=== PATIENT | female | born 1980 | race Caucasian/White ===

== ENCOUNTER 2020-03-31 17:54 | Emergency (ER) | payer MEDICAID, OTHER ==
[2020-03-31] MEDS ORDERED: SODIUM CHLORIDE 0.9% 1,000 ML IV STA (18:17)
[2020-03-31] MEDS ORDERED: METOCLOPRAMIDE 10 MG/2 ML VIAL IVP STA (18:17)
[2020-03-31 18:42] LABS: ALBUMIN 4.3 g/dL (3.2-5.5); ALBUMIN/GLOBULIN RATIO 1.1 (1.0-2.2); BILIRUBIN,TOTAL 1.2 mg/dL (0.2-1.0); CREATININE 0.5 mg/dL (0.4-1.0); TOTAL PROTEIN 8.3 g/dL (6.7-8.2)
[2020-03-31] MEDS ORDERED: diphenhydrAMINE INJ 50 MG/ML VIAL IVP STA (19:01)
[2020-03-31] MEDS ORDERED: MORPHINE 10 MG/ML VIAL IVP STA (19:01)
--- NOTE | 2020-03-31 19:02 | ED Physician Documentation ---
PD HPI HEADACHE - Stated complaint Stated Complaint: NAUSEA/VOM - Chief complaint Chief Complaint: Neuro - History obtained from History obtained from: Patient - Additional information Additional information: at 9 weeks gestation presents with headache light sensitivity and vomiting since yesterday associated with some diarrhea as well. No fevers or neck stiffness. Feels consistent with prior headaches/migraines. Did not try anything at home. Review of Systems Constitutional: denies: Fever, Chills Nose: denies: Rhinorrhea / runny nose Cardiac: denies: Palpitations Respiratory: denies: Dyspnea, Cough PD PAST MEDICAL HISTORY - Past Medical History Past Medical History: Yes Cardiovascular: High cholesterol Respiratory: None Endocrine/Autoimmune: Type 2 diabetes GI: None : None HEENT: None Psych: None Musculoskeletal: None Derm: None - Past Surgical History Past Surgical History: No - Present Medications Home Medications: Ambulatory Orders Medication Instructions Recorded Confirmed Aspirin/Acetaminophen/Caffeine 1 cap PO PRN 09/22/12 09/22/12 [Excedrin Extra Strength Caplet] Metformin HCl 500 mg PO BID 09/22/12 09/22/12 Multivitamin [Multivitamins] 1 each PO DAILY 09/22/12 09/22/12 cephALEXin [Keflex] 500 mg PO Q6H #28 capsule 09/30/12 Butalb/Acetaminophen/Caffeine 1 each PO Q4H PRN #10 capsule 03/31/20 [Fioricet 50-300-40 mg Capsule] Metoclopramide [Reglan] 10 mg PO Q6H PRN #20 tablet 03/31/20 - Allergies Allergies/Adverse Reactions: Allergies Allergy/AdvReac Type Severity Reaction Status Date / Time No Known Drug Allergies Allergy Verified 03/31/20 18:02 - Social History Does the pt smoke?: No Smoking Status: Never smoker Does the pt drink ETOH?: No Does the pt have substance abuse?: Yes - Immunizations Immunizations are current?: Yes - POLST Patient has POLST: No PD ED PE NORMAL - Vitals Vital signs reviewed: Yes - General General: Alert and oriented X 3, No acute distress - HEENT HEENT: PERRL, EOMI - Neck Neck: Supple, no meningeal sign, No bony TTP - Cardiac Cardiac: RRR, No murmur - Respiratory Respiratory: No respiratory distress - Female Female : Other (Bedside ultrasound demonstrates single live intrauterine with a heartbeat rate of 164) - Neuro Neuro: Alert and oriented X 3, Normal speech Results - Vitals Vitals: Vital Signs - 24 hr 03/31/20 03/31/20 03/31/20 17:59 18:57 20:12 Temperature 36.4 C L Heart Rate 90 78 77 Respiratory 16 17 18 Rate Blood Pressure 164/87 H 145/83 H 112/69 O2 Saturation 97 99 98 Oxygen O2 Source Room air - Labs Labs: Laboratory Tests 03/31/20 03/31/20 18:06 18:15 Sodium 132 L Potassium 3.6 Chloride 99 L Carbon Dioxide 19 L Anion Gap 14.0 H BUN 11 Creatinine 0.5 Estimated GFR (MDRD) 137 Glucose 213 H POC Whole Bld Glucose 199 H Calcium 9.0 Total Bilirubin 1.2 H AST 23 ALT 42 Alkaline Phosphatase 78 Total Protein 8.3 H Albumin 4.3 Globulin 4.0 Albumin/Globulin Ratio 1.1 Lipase 24 PD MEDICAL DECISION MAKING - ED course ED course: 39-year-old woman with what seems like an uncomplicated migraine, has not taken anything at home because of concerns. Here she is administered Reglan and Benadryl IV with significant improvement in pain and requesting discharge. No clinical evidence of meningitis, history is inconsistent with subarachnoid hemorrhage. Departure - Departure Disposition: 01 Home, Self Care Clinical Impression: Migraine Qualifiers: Migraine type: with aura Status migrainosus presence: with status migrainosus Intractability: not intractable Qualified Code(s): G43.101 - Migraine with aura, not intractable, with status migrainosus Condition: Good Record reviewed to determine appropriate education?: Yes Instructions: ED Headache Migraine Prescriptions: Butalb/Acetaminophen/Caffeine [Fioricet 50-300-40 mg Capsule] 1 each PO Q4H PRN #10 capsule PRN Reason: Headache Metoclopramide [Reglan] 10 mg PO Q6H PRN #20 tablet PRN Reason: nausea or headache Comments: I have prescribed some medications that are of course safe in that you can try at home. You can also take Tylenol. Return for new or worsening symptoms or if the pain is uncontrolled. Follow-up with your chief dietitian as scheduled. Discharge Date/Time: 03/31/20 20:34
[2020-03-31 20:13] VITALS: BP 112/69
== END 2020-03-31 20:34 | disposition home or self-care (01) ==
LOC: ED 17:54
DX: O99.351 Diseases of the nervous system complicating pregnancy, first trimester (principal); G43.101 Migraine with aura, not intractable, with status migrainosus; O24.111 Pre-existing type 2 diabetes mellitus, in pregnancy, first trimester; E11.9 Type 2 diabetes mellitus without complications; Z79.84 Long term (current) use of oral hypoglycemic drugs; O09.521 Supervision of elderly multigravida, first trimester; Z3A.09 9 weeks gestation of pregnancy
CPT/HCPCS: 36415; 80053; 83690; 96361; 96374; 96375; 99283; 99284; J1200; J2765

== ENCOUNTER 2020-05-06 04:26 | Emergency (ER) | payer MEDICAID ==
[2020-05-06] MEDS ORDERED: BUTALB/ACETAM/CAFF 50/325/40MG TABLET PO STA (05:15)
--- NOTE | 2020-05-06 05:46 | ED Physician Documentation ---
History of Present Illness - Stated complaint Stated Complaint: JIMENZE - Chief complaint Chief Complaint: Heent - History obtained from History obtained from: Patient - Additonal information Additional information: 40-year-old woman with past medical history of diabetes, at 14 weeks gestation presents with bilateral occipital headache gradual onset 3 days ago, intermittent, waxing and waning, currently 7 out of 10, worse with coughing. Patient states that she has a chronic nonproductive cough in the morning. Denies dizziness, chest pain, shortness of breath, vomiting. she does have morning sic kness occasionally that has not worsened recently. Review of Systems Ten Systems: 10 systems reviewed and negative Neurologic: reports: Headache PD PAST MEDICAL HISTORY - Past Medical History Past Medical History: Yes Cardiovascular: High cholesterol Respiratory: None Neuro: Migraines Endocrine/Autoimmune: Type 2 diabetes GI: None : None HEENT: None Psych: None Musculoskeletal: None Derm: None - Past Surgical History Past Surgical History: No - Present Medications Home Medications: Ambulatory Orders Medication Instructions Recorded Confirmed Metformin HCl 500 mg PO BID 09/22/12 05/06/20 Multivitamin [Multivitamins] 1 each PO DAILY 09/22/12 05/06/20 Butalb/Acetaminophen/Caffeine 1 each PO Q4H PRN #10 capsule 03/31/20 05/06/20 [Fioricet 50-300-40 mg Capsule] Metoclopramide [Reglan] 10 mg PO Q6H PRN #20 tablet 03/31/20 05/06/20 Aspirin [Aspirin EC] 2 cap.ec PO DAILY 05/06/20 05/06/20 Butalb/Acetaminophen/Caffeine 1 each PO 1-2XD PRN #15 tablet 05/06/20 [Esgic 50-325-40 mg Tablet] - Allergies Allergies/Adverse Reactions: Allergies Allergy/AdvReac Type Severity Reaction Status Date / Time No Known Drug Allergies Allergy Verified 05/06/20 04:40 - Social History Does the pt smoke?: No Smoking Status: Never smoker Does the pt drink ETOH?: No Does the pt have substance abuse?: Yes - Immunizations Immunizations are current?: Yes - POLST Patient has POLST: No PD ED PE NORMAL - Vitals Vital signs reviewed: Yes - General General: Alert and oriented X 3 - HEENT HEENT: Atraumatic, PERRL, EOMI, Moist mucous membranes - Neck Neck: Supple, no meningeal sign - Cardiac Cardiac: RRR - Respiratory Respiratory: Clear bilaterally - Abdomen Abdomen: Non tender, Non distended, Other (gravid uterus. us with normal movement. HR 146) - Female Female : Deferred - Rectal Rectal: Deferred - Back Back: No CVA TTP - Derm Derm: Normal color - Extremities Extremities: No deformity - Neuro Neuro: Alert and oriented X 3 - Psych Psych: Normal mood, Normal affect Results - Vitals Vitals: Vital Signs - 24 hr 05/06/20 05/06/20 04:37 04:40 Temperature 36.6 C 36.6 C Heart Rate 88 88 Respiratory 16 16 Rate Blood Pressure 136/81 H 136/81 H O2 Saturation 97 97 Oxygen O2 Source Room air PD MEDICAL DECISION MAKING - ED course ED course: 40-year-old woman, 14 weeks complicated by diabetes and advanced maternal age, no other complicating factors. She has been suffering from headache during this that is worse with coughing. She was prescribed butalbital acetaminophen caffeine on a prior ED visit with improvement in her headache and is requesting a refill. Her blood pressure is borderline elevated but not in the range for preeclampsia (>140/90) according to ACOG. Patient was advised to have it rechecked at her OB appointment this Friday. Strict return precautions given. Departure - Departure Disposition: Home, Self Care Clinical Impression: Headache, Condition: Good Instructions: ED Headache Migraine Prescriptions: Butalb/Acetaminophen/Caffeine [Esgic 50-325-40 mg Tablet] 1 each PO 1-2XD PRN #15 tablet PRN Reason: Headache Comments: You were seen in the emergency department for a headache. Your baby's heartbeat was 146bpm, a healthy range. Your blood pressure was borderline elevated (136/81), so you should get that checked by your [employer] TE[employer]ER at your visit on friday and let them know you've been having headaches. Return for any new or worsening symptoms or other concerns.
[2020-05-06 05:50] VITALS: BP 135/82
== END 2020-05-06 05:49 | disposition home or self-care (01) ==
LOC: ED 04:26
DX: O99.891 Other specified diseases and conditions complicating pregnancy (principal); R51.9 Headache, unspecified; R03.0 Elevated blood-pressure reading, without diagnosis of hypertension; O24.112 Pre-existing type 2 diabetes mellitus, in pregnancy, second trimester; E11.9 Type 2 diabetes mellitus without complications; Z79.84 Long term (current) use of oral hypoglycemic drugs; O09.522 Supervision of elderly multigravida, second trimester; Z3A.14 14 weeks gestation of pregnancy
CPT/HCPCS: 99282; 99284; A9270

== ENCOUNTER 2020-05-19 22:50 | Emergency (ER) | payer MEDICAID ==
[2020-05-19] MEDS ORDERED: METOCLOPRAMIDE 10 MG/2 ML VIAL IVP STA (23:19)
[2020-05-19] MEDS ORDERED: SODIUM CHLORIDE 0.9% 500 ML IV STA (23:19)
--- NOTE | 2020-05-19 23:23 | ED Physician Documentation ---
PD HPI NVD - Stated complaint Stated Complaint: N/V/JIMENEZ - Chief complaint Chief Complaint: Abd Pain - History obtained from History obtained from: Patient - History of Present Illness Timing - onset: Enter time (1800), Today Timing - duration: Hours Timing - details: Abrupt onset, Still present Associated symptoms: No: Fever, Abdominal pain, Chest pain, Dysuria Contributing factors: Diabetes, Other (16 wks ) Worsened by: Eating Similar symptoms before: Diagnosis (migraine) Recently seen: Emergency Dept - Additonal information Additional information: 40-year-old diabetic female is 16 weeks and she has a history of migraine headache she has developed a headache today and this evening about 1800 she began to have vomiting and she has not been able to keep her migraine medications down. She continues to have a headache, nausea and vomiting. She has poorly controlled diabetes and refuses insulin. She is followed by Dr. Gallagher in [place] and by the karmen-natologists at [facility]. Review of Systems Constitutional: denies: Fever Eyes: denies: Decreased vision Ears: denies: Ear pain Nose: denies: Congestion Throat: denies: Sore throat Cardiac: denies: Chest pain / pressure, Palpitations Respiratory: denies: Dyspnea, Cough GI: reports: Nausea, Vomiting. denies: Abdominal Pain : denies: Dysuria, Frequency Musculoskeletal: denies: Neck pain, Back pain, Extremity pain Neurologic: reports: Headache. denies: Generalized weakness, Focal weakness, Numbness, Head injury, LOC PD PAST MEDICAL HISTORY - Past Medical History Cardiovascular: High cholesterol Respiratory: None Neuro: Migraines Endocrine/Autoimmune: Type 2 diabetes GI: None : None HEENT: None Psych: None Musculoskeletal: None Derm: None - Past Surgical History Past Surgical History: No - Present Medications Home Medications: Ambulatory Orders Medication Instructions Recorded Confirmed Metformin HCl 500 mg PO BID 09/22/12 05/19/20 Multivitamin [Multivitamins] 1 each PO DAILY 09/22/12 05/19/20 Butalb/Acetaminophen/Caffeine 1 each PO Q4H PRN #10 capsule 03/31/20 05/19/20 [Fioricet 50-300-40 mg Capsule] Metoclopramide [Reglan] 10 mg PO Q6H PRN #20 tablet 03/31/20 05/19/20 - Allergies Allergies/Adverse Reactions: Allergies Allergy/AdvReac Type Severity Reaction Status Date / Time No Known Drug Allergies Allergy Verified 05/19/20 23:04 - Social History Does the pt smoke?: No Smoking Status: Never smoker Does the pt drink ETOH?: No Does the pt have substance abuse?: Yes - Immunizations Immunizations are current?: Yes - POLST Patient has POLST: No PD ED PE NORMAL - Vitals Vital signs reviewed: Yes (tachy and hypertensive ) - General General: Alert and oriented X 3, Well developed/nourished, Other (40 y/o female with a mask on and an ice bag behind her head. ) - HEENT HEENT: Atraumatic, PERRL, EOMI - Neck Neck: Supple, no meningeal sign, No bony TTP - Cardiac Cardiac: RRR, No murmur - Respiratory Respiratory: No respiratory distress, Clear bilaterally - Abdomen Abdomen: Normal bowel sounds, Soft, Non tender, Non distended, No organomegaly - Back Back: No CVA TTP, No spinal TTP - Derm Derm: Normal color, Warm and dry, No rash - Extremities Extremities: No deformity, No edema - Neuro Neuro: Alert and oriented X 3, supervisor fleshing 2-12 intact, No motor deficit, No sensory deficit, Normal speech Eye Opening: Spontaneous Motor: Obeys Commands Verbal: Oriented GCS Score: 15 - Psych Psych: Normal mood, Normal affect Results - Vitals Vitals: Vital Signs - 24 hr 05/19/20 05/20/20 05/20/20 22:59 00:02 01:40 Temperature 36.7 C Heart Rate 115 H 95 Respiratory 24 18 16 Rate Blood Pressure 157/96 H 136/92 H O2 Saturation 97 96 05/20/20 05/20/20 02:22 03:07 Temperature Heart Rate Respiratory 16 15 Rate Blood Pressure O2 Saturation Oxygen O2 Source Room air - Labs Labs: Laboratory Tests 05/19/20 05/19/20 05/20/20 23:10 23:10 01:51 WBC 13.6 H RBC 4.44 Hgb 13.4 Hct 38.8 MCV 87.4 MCH 30.2 MCHC 34.5 RDW 13.0 Plt Count 382 MPV 10.0 Neut # (Auto) 10.8 H Lymph # (Auto) 2.0 [place] # (Auto) 0.5 Eos # (Auto) 0.1 Baso # (Auto) 0.0 Absolute Nucleated RBC 0.00 Nucleated RBC % 0.0 Sodium 133 L Potassium 3.7 Chloride 102 Carbon Dioxide 19 L Anion Gap 12.0 BUN 11 Creatinine 0.4 Estimated GFR (MDRD) 177 Glucose 208 H Calcium 9.3 Total Bilirubin 0.5 AST 17 ALT 28 Alkaline Phosphatase 58 Total Protein 7.8 Albumin 4.0 Globulin 3.8 Albumin/Globulin Ratio 1.1 Lipase 31 Urine Color YELLOW Urine Clarity CLEAR Urine pH 6.0 Ur Specific [place] 1.020 Urine Protein NEGATIVE Urine Glucose (UA) >=1000 H Urine Ketones >=80 H Urine Occult Blood NEGATIVE Urine Nitrite NEGATIVE Urine Bilirubin NEGATIVE Urine Urobilinogen 0.2 (NORMAL) Ur Leukocyte Esterase NEGATIVE Ur Microscopic Review NOT INDICATED Urine Culture Comments NOT INDICATED Procedures - Bedside sono Bedside sono by EMP: With use of bedside ultrasound the fetus is imaged and has a heart rate of 144 bpm a biparietal diameter suggesting a gestational age of 15 weeks 3 days. - IVC sono (time) 2320 Bedside IVC sono: IVC measures (cm) (1.7), Euvolemia PD MEDICAL DECISION MAKING - ED course Complexity details: reviewed old records, reviewed results, re-evaluated patient, considered differential, d/w patient ED course: 40-year-old diabetic female 16 weeks has migraine headache and vomiting unable to keep her Reglan down and an IV is begun she is given 10 mg of Reglan intravenously as well as 500 mils of fluid. She has improvement and feels like she could go home and then all symptoms return. She is given IV zofran with improvement in her vomiting but her headache returns at 10/10 and she is given the migraine cocktail of compazine, benadryl, decadron and toradal. Departure - Departure Disposition: 01 Home, Self Care Clinical Impression: Migraine Qualifiers: Migraine type: with aura Status migrainosus presence: without status migrainosus Intractability: not intractable Qualified Code(s): G43.109 - Migraine with aura, not intractable, without status migrainosus Condition: Stable Instructions: ED Headache Migraine Follow-Up: LUIS GUTIÉRREZ ARNP [Primary Care Provider] -
[2020-05-19 23:44] LABS: BASOPHILS % (AUTO) 0.3 %; EOSINOPHILS # (AUTO) 0.1 10^3/uL (0.0-0.7); EOSINOPHILS % (AUTO) 0.6 %; HGB - HEMOGLOBIN 13.4 g/dL (12.0-16.0); LYMPHOCYTES % (AUTO) 14.6 %; MEAN CORPUSCULAR HEMOGLOBIN 30.2 pg (27.0-31.0); MEAN CORPUSCULAR HGB CONC 34.5 g/dL (32.0-36.0); MEAN CORPUSCULAR VOLUME 87.4 fL (81.0-99.0); MONOCYTES # (AUTO) 0.5 10^3/uL (0.0-1.0); MONOCYTES % (AUTO) 3.8 %; NEUTROPHILS # (AUTO) 10.8 10^3/uL (1.5-6.6); NEUTROPHILS % (AUTO) 79.8 %; PLT - PLATELET COUNT 382 10^3/uL (130-450); RED BLOOD COUNT 4.44 10^6/uL (4.20-5.40); WHITE BLOOD COUNT 13.6 x10^3/uL (4.8-10.8)
[2020-05-19 23:53] LABS: ALBUMIN/GLOBULIN RATIO 1.1 (1.0-2.2); BILIRUBIN,TOTAL 0.5 mg/dL (0.2-1.0); CALCIUM 9.3 mg/dL (8.5-10.3); CREATININE 0.4 mg/dL (0.4-1.0); TOTAL PROTEIN 7.8 g/dL (6.7-8.2)
[2020-05-20] MEDS ORDERED: SODIUM CHLORIDE 0.9% 500 ML IV STA (00:53)
[2020-05-20 01:55] LABS: BILIRUBIN,URINE NEGATIVE (NEGATIVE); GLUCOSE, URINE (UA) >=1000 mg/dL (NEGATIVE); KETONES,URINE (UA) >=80 mg/dL (NEGATIVE); LEUKOCYTE ESTERASE, URINE NEGATIVE (NEGATIVE); NITRITE,URINE NEGATIVE (NEGATIVE); OCCULT BLOOD,URINE NEGATIVE (NEGATIVE); PROTEIN,URINE NEGATIVE (NEGATIVE); UROBILINOGEN,URINE 0.2 (NORMAL) E.U./dL (NORMAL)
[2020-05-20 01:56] LABS: CLARITY,URINE CLEAR (CLEAR)
[2020-05-20] MEDS ORDERED: ONDANSETRON 4 MG/2 ML VIAL IVP STA (02:15)
[2020-05-20] MEDS ORDERED: PROCHLORPERAZINE 10 MG/2 ML VIAL IVP STA (04:17)
[2020-05-20] MEDS ORDERED: DEXAMETHASONE 10 MG/ML VIAL IVP STA (04:18)
[2020-05-20] MEDS ORDERED: KETOROLAC 30 MG/ML VIAL IVP STA (04:18)
[2020-05-20] MEDS ORDERED: diphenhydrAMINE INJ 50 MG/ML VIAL IVP STA (04:18)
[2020-05-20 06:31] VITALS: BP 118/67
== END 2020-05-20 06:52 | disposition home or self-care (01) ==
LOC: ED 22:50
DX: O99.352 Diseases of the nervous system complicating pregnancy, second trimester (principal); G43.109 Migraine with aura, not intractable, without status migrainosus; O24.112 Pre-existing type 2 diabetes mellitus, in pregnancy, second trimester; E11.9 Type 2 diabetes mellitus without complications; Z79.84 Long term (current) use of oral hypoglycemic drugs; Z3A.15 15 weeks gestation of pregnancy
CPT/HCPCS: 80053; 81003; 83690; 85025; 96361; 96374; 96375; 99284; 99285; J1200; J2765; 81001; 87086

== ENCOUNTER 2022-08-23 08:24 | Emergency (ER) | payer MEDICAID ==
--- NOTE | 2022-08-23 08:39 | ED Physician Documentation ---
History of Present Illness - Stated complaint Stated Complaint: DEHYDRATION,NAUSEA - Chief complaint Chief Complaint: Abd Pain - Additonal information Additional information: Patient is 42-year-old female presenting to the emergency department with chief complaints of headache, nausea, vomiting, diarrhea. Symptoms ongoing x2 days. Started initially with left-sided throbbing headache. Reports feels similar to migraine she has had in the past. No trauma, fever, neck stiffness associated with this. Multiple episodes of nonbloody nonbilious vomiting with nonbloody nonmucoid diarrhea at home. Reports nausea vomiting is a frequent symptom associated with her migraines. Denies any known sick contacts, abdominal pain, blood in stool or vomitus. Reports that she is currently menstruating and that she has "Been barely bleeding" which she indicates is an indication of dehydration. In the past she was seen here twice 05/19/2020 and 03/31/2026 for headache associated with nausea vomiting at that time she was in the first and second trimesters of a confirmed intrauterine . She does not believe she is at this time. Review of Systems Constitutional: denies: Fever Eyes: denies: Loss of vision Ears: denies: Loss of hearing Nose: denies: Rhinorrhea / runny nose Throat: denies: Dental pain / toothache Cardiac: denies: Chest pain / pressure GI: reports: Nausea, Vomiting, Diarrhea. denies: Abdominal Pain : denies: Dysuria Skin: denies: Rash Musculoskeletal: denies: Neck pain Neurologic: reports: Headache PD PAST MEDICAL HISTORY - Past Medical History Cardiovascular: High cholesterol Respiratory: None Neuro: Migraines Endocrine/Autoimmune: Type 2 diabetes GI: None : None HEENT: None Psych: None Musculoskeletal: None Derm: None - Past Surgical History Past Surgical History: No - Present Medications Home Medications: Ambulatory Orders Medication Instructions Recorded Confirmed Metformin HCl 1,000 mg PO BID 09/22/12 08/23/22 Multivitamin [Multivitamins] 1 each PO DAILY 09/22/12 08/23/22 Butalb/Acetaminophen/Caffeine 1 each PO Q4H PRN #10 capsule 03/31/20 08/23/22 [Fioricet 50-300-40 mg Capsule] Butalb/Acetaminophen/Caffeine 1 cap PO Q6H PRN #10 cap 08/23/22 [Fioricet 50-300-40 mg Capsule] - Allergies Allergies/Adverse Reactions: Allergies Allergy/AdvReac Type Severity Reaction Status Date / Time No Known Drug Allergies Allergy Verified 08/23/22 08:34 - Social History Does the pt smoke?: No Smoking Status: Never smoker Does the pt drink ETOH?: No Does the pt have substance abuse?: Yes - Immunizations Immunizations are current?: Yes - POLST Patient has POLST: No PD ED PE NORMAL - Vitals Vital signs reviewed: Yes (Mild elevated blood pressure but otherwise within normal limits.) - General General: Alert and oriented X 3, No acute distress, Well developed/nourished - HEENT HEENT: Atraumatic, PERRL, Moist mucous membranes - Neck Neck: Supple, no meningeal sign - Cardiac Cardiac: RRR - Respiratory Respiratory: No respiratory distress - Abdomen Abdomen: Normal bowel sounds, Soft, Non tender - Female Female : Deferred - Rectal Rectal: Deferred - Derm Derm: Normal color - Neuro Neuro: Alert and oriented X 3, mass spectroscopist 2-12 intact, No motor deficit, Normal speech Results - Vitals Vitals: Vital Signs - 24 hr 08/23/22 08:31 Temperature 36.6 C Heart Rate 86 Respiratory 16 Rate Blood Pressure 150/90 H O2 Saturation 98 Oxygen O2 Source Room air - Labs Labs: Laboratory Tests 08/23/22 08/23/22 08/23/22 08:45 08:45 08:45 WBC 12.8 H RBC 5.09 Hgb 13.8 Hct 41.7 MCV 81.9 MCH 27.1 MCHC 33.1 RDW 14.0 Plt Count 432 MPV 10.2 Neut # (Auto) 9.3 H Lymph # (Auto) 2.5 [place] # (Auto) 0.9 Eos # (Auto) 0.1 Baso # (Auto) 0.0 Absolute Nucleated RBC 0.00 Nucleated RBC % 0.0 Sodium 134 L Potassium 4.4 Chloride 104 Carbon Dioxide 17 L Anion Gap 13.0 BUN 13 Creatinine 0.6 Estimated GFR (MDRD) 110 Glucose 241 H Calcium 8.5 Total Bilirubin 1.7 H AST 38 ALT 59 Alkaline Phosphatase 99 Total Protein 7.8 Albumin 3.9 Globulin 3.9 Albumin/Globulin Ratio 1.0 Lipase 32 Serum HCG, Qual NEGATIVE PD Medical Decision Making - ED course Complexity details: reviewed old records, reviewed results, re-evaluated patient, d/w patient ED course: Patient 42-year-old female presenting to the emergency department with headache with associated nausea, vomiting, diarrhea. Afebrile, hemodynamically stable on arrival to the emergency department. No focal or lateralizing neurologic deficits. Clear aeration in all lung glasgow and abdominal exam though is otherwise benign. IV access was established. She does have a history of migraine headache disorder and reported that her headache is similar to migraines she has had in the past. There is no nuchal rigidity that would be suggestive of meningeal vaginal irritation and her overall presentation is inconsistent with acute subarachnoid hemorrhage. She was given dose of Reglan, Benadryl with significant symptomatic improvement. Labs obtained did demonstrate a very minimal hyponatremia with sodium 135 as well as an elevation in glucose consistent with her known history of diabetes treated with metformin. Remainder of her tests were generally within normal limits or nonactionable. She was reevaluated after approximately 2 hours in the department and reported feeling significantly better. Requested discharge. Will discharge with short course of Fioricet. Will encourage careful follow-up with primary care or return to the emergency department as needed. Departure - Departure Disposition: 01 Home, Self Care Clinical Impression: Migraine headache Qualifiers: Migraine type: unspecified Status migrainosus presence: without status migrainosus Intractability: not intractable Qualified Code(s): G43.909 - Migraine, unspecified, not intractable, without status migrainosus Nausea and vomiting Qualifiers: Vomiting type: unspecified Qualified Code(s): R11.2 - Nausea with vomiting, unspecified Instructions: ED Headache Migraine Prescriptions: Butalb/Acetaminophen/Caffeine [Fioricet 50-300-40 mg Capsule] 1 cap PO Q6H PRN #10 cap PRN Reason: headache Comments: Thank you for allowing us to care for you today at [facility]. Please drink plenty fluids and get plenty of rest over the course the next few days. If your symptoms return or worsen please return. In the meantime please make a follow-up appoint with your primary care doctor. I have sent prescription for Fioricet to your preferred pharmacy, [facility].
[2022-08-23] MEDS ORDERED: diphenhydrAMINE INJ 50 MG/ML VIAL IVP STA (08:40)
[2022-08-23] MEDS ORDERED: SODIUM CHLORIDE 0.9% 1,000 ML IV STA (08:40)
[2022-08-23] MEDS ORDERED: METOCLOPRAMIDE 10 MG/2 ML VIAL IVP STA (08:40)
[2022-08-23 09:17] LABS: BASOPHILS % (AUTO) 0.2 %; EOSINOPHILS # (AUTO) 0.1 10^3/uL (0.0-0.7); EOSINOPHILS % (AUTO) 0.8 %; HCT - HEMATOCRIT 41.7 % (37.0-47.0); HGB - HEMOGLOBIN 13.8 g/dL (12.0-16.0); LYMPHOCYTES # (AUTO) 2.5 10^3/uL (1.5-3.5); LYMPHOCYTES % (AUTO) 19.5 %; MEAN CORPUSCULAR HEMOGLOBIN 27.1 pg (27.0-31.0); MEAN CORPUSCULAR HGB CONC 33.1 g/dL (32.0-36.0); MEAN CORPUSCULAR VOLUME 81.9 fL (81.0-99.0); MEAN PLATELET VOLUME 10.2 fL (7.9-10.8); MONOCYTES # (AUTO) 0.9 10^3/uL (0.0-1.0); MONOCYTES % (AUTO) 6.9 %; NEUTROPHILS # (AUTO) 9.3 10^3/uL (1.5-6.6); NEUTROPHILS % (AUTO) 72.1 %; PLT - PLATELET COUNT 432 10^3/uL (130-450); RED BLOOD COUNT 5.09 10^6/uL (4.20-5.40); WHITE BLOOD COUNT 12.8 x10^3/uL (4.8-10.8)
[2022-08-23 09:48] LABS: ALBUMIN 3.9 g/dL (3.2-5.5); BILIRUBIN,TOTAL 1.7 mg/dL (0.2-1.0); CALCIUM 8.5 mg/dL (8.5-10.3); CREATININE 0.6 mg/dL (0.4-1.0); POTASSIUM 4.4 mmol/L (3.5-5.0); TOTAL PROTEIN 7.8 g/dL (6.7-8.2)
[2022-08-23 09:54] LABS: HCG,QUALITATIVE BLOOD NEGATIVE
[2022-08-23 10:09] VITALS: BP 142/89
== END 2022-08-23 10:28 | disposition home or self-care (01) ==
LOC: ED 08:24
DX: G43.909 Migraine, unspecified, not intractable, without status migrainosus (principal); R11.2 Nausea with vomiting, unspecified; E78.00 Pure hypercholesterolemia, unspecified; E11.9 Type 2 diabetes mellitus without complications
CPT/HCPCS: 36415; 80053; 83690; 84703; 85025; 96361; 96374; 96375; 99284; J1200; J2765

== ENCOUNTER 2023-03-11 23:16 | Emergency (ER) | payer MEDICAID ==
--- NOTE | 2023-03-11 23:44 | ED Physician Documentation ---
PD HPI BACK PAIN - Stated complaint Stated Complaint: BACK PX - Chief complaint Chief Complaint: Back Pain - History obtained from History obtained from: Patient - Additional information Additional information: HPI from patient. Patient c/o one week of right flank and right paralumbar pain, gradual onset without inciting event. The pain waxes and wanes without apparent exacerbating factors. She has some improvement, though inconsistently, with use/application of a wrap-around mid/lower back brace. She denies injury. Denies h/o similar symptoms. Denies nausea/vomiting, numbness, weakness, fever. No urinary/bowel incontinence. Review of Systems Constitutional: denies: Fever : denies: Dysuria, Frequency, Unable to Void, Incontinent, Hematuria Musculoskeletal: reports: Back pain. denies: Neck pain Neurologic: denies: Focal weakness, Numbness PD PAST MEDICAL HISTORY - Past Medical History Past Medical History: Yes Cardiovascular: High cholesterol Respiratory: None Neuro: Migraines Endocrine/Autoimmune: Type 2 diabetes GI: None : None HEENT: None Psych: None Musculoskeletal: None Derm: None - Past Surgical History Past Surgical History: No - Present Medications Home Medications: Ambulatory Orders Medication Instructions Recorded Confirmed Metformin HCl 1,000 mg PO BID 09/22/12 08/23/22 Multivitamin [Multivitamins] 1 each PO DAILY 09/22/12 08/23/22 Butalb/Acetaminophen/Caffeine 1 each PO Q4H PRN #10 capsule 03/31/20 08/23/22 [Fioricet 50-300-40 mg Capsule] Butalb/Acetaminophen/Caffeine 1 cap PO Q6H PRN #10 cap 08/23/22 [Fioricet 50-300-40 mg Capsule] Cyclobenzaprine [Flexeril] 10 mg PO TID PRN #20 tablet 03/12/23 Lidocaine Patch 5% [Lidoderm Patch] 1 patch TOP DAILY PRN #10 patch 03/12/23 Metformin HCl 1,000 mg PO BID #60 tablet 03/12/23 - Allergies Allergies/Adverse Reactions: Allergies Allergy/AdvReac Type Severity Reaction Status Date / Time Sulfa (Sulfonamide Allergy Hives Verified 03/11/23 23:21 Antibiotics) - Social History Does the pt smoke?: No Smoking Status: Never smoker Does the pt drink ETOH?: No Does the pt have substance abuse?: Yes - Immunizations Immunizations are current?: Yes - POLST Patient has POLST: No PD ED PE NORMAL - Vitals Vital signs reviewed: Yes - General General: Alert and oriented X 3, Well developed/nourished, Other (during H+P, patient appears to be in waxing and waning mild/moderate painful distress) - Cardiac Cardiac: RRR, No murmur - Respiratory Respiratory: No respiratory distress, Clear bilaterally - Abdomen Abdomen: Soft, Non tender, Non distended - Back Back: No CVA TTP, No spinal TTP - Derm Derm: No rash - Extremities Extremities: No edema - Neuro Neuro: No motor deficit (5/5 bilateral dorsi/plantarflexion), No sensory deficit (LTS intact BLE) Results - Vitals Vitals: Oxygen O2 Source Room air - Labs Labs: Laboratory Tests 03/12/23 03/12/23 03/12/23 00:15 00:15 00:15 WBC 10.4 RBC 4.97 Hgb 13.9 Hct 41.7 MCV 83.9 MCH 28.0 MCHC 33.3 RDW 13.4 Plt Count 377 MPV 9.8 Neut # (Auto) 6.5 Lymph # (Auto) 2.8 [place] # (Auto) 0.7 Eos # (Auto) 0.4 Baso # (Auto) 0.1 Absolute Nucleated RBC 0.00 Nucleated RBC % 0.0 Sodium 132 L Potassium 4.0 Chloride 99 L Carbon Dioxide 24 Anion Gap 9.0 BUN 18 Creatinine 0.7 Estimated GFR (MDRD) 92 Glucose 358 H Calcium 9.4 Total Bilirubin 0.3 AST 19 ALT 28 Alkaline Phosphatase 103 Total Protein 7.5 Albumin 4.6 Globulin 2.9 Albumin/Globulin Ratio 1.6 Lipase 35 Urine Color YELLOW Urine Clarity CLEAR Urine pH 6.0 Ur Specific [place] 1.010 Urine Protein NEGATIVE Urine Glucose (UA) >=1000 H Urine Ketones NEGATIVE Urine Occult Blood NEGATIVE Urine Nitrite NEGATIVE Urine Bilirubin NEGATIVE Urine Urobilinogen 0.2 (NORMAL) Ur Leukocyte Esterase NEGATIVE Ur Microscopic Review NOT INDICATED Urine Culture Comments NOT INDICATED - Rads (name of study) CT A/P Relevant Findings:: Prelim report reviewed, See rad report PD Medical Decision Making - ED course Complexity details: reviewed results, re-evaluated patient, considered differential, d/w patient ED course: Normal CBC. ER abdominal panel notable for hyperglycemia (358); patient says she stopped taking her metformin and glypizide weeks ago although still has them at home. The hyperglycemia would not explain her symptoms and thus is an incidental finding. UA is negative except for >1000 glucose (no ketonuria, no hematuria, no LE). In discussing treating the hyperglycemia, patient says she will go home and resume taking her DM medications immediately. I also am providing an rx for the metformin, as she does not know how many she has left nor if she has refills. CT A/P does not have findings that confidently explain her symptoms. While a gallstone is noted, the gallbladder is contracted which would be atypical for acute biliary colic. This remains a possible etiology for symptoms. Also noted is moderate stool in ascending colon, which is another possible etiology although patient does not feel her bowel habits have changed. I advised her to take one or two doses of a laxative such as MOM to see if this improves symptoms. A solitary 5mm left lower lobe pulmonary nodule is noted; she indicates this was noted on a prior study several years ago. I advised her to mention this finding to her PMD to confirm it was on a previous study and has not changed in size. Although etiology of symptoms is not clear at this time, further emergent study is not indicated (no "red flags" regarding back pain such as fever, numbness/weakness, incontinence). Doubt zoster (although pain can precede rash, one week of pain without rash would be quite atypical). Spinal stenosis/discopathy remains on differential diagnosis. She is adamant about not wanting any narcotic/opiate medications. She is given IV toradol, a lidoderm patch is placed on right paralumbar region, and she is given take-home pack of flexeril (she has had this before with adequate effect for other pains). She is provided prescriptions for lidoderm patches and flexeril. Return precautions discussed and I advised her to contact PCP in the morning to arrange for next available appointment for reevaluation. Departure - Departure Disposition: 01 Home, Self Care Clinical Impression: Hyperglycemia Back pain Qualifiers: Back pain location: low back pain Chronicity: acute Back pain laterality: right Sciatica presence: without sciatica Qualified Code(s): M54.50 - Low back pain, unspecified Condition: Good Instructions: ED Neck Back Pain General, ED Acute Pain UKO, ED Nodule Solitary Pulmonary Prescriptions: Cyclobenzaprine [Flexeril] 10 mg PO TID PRN #20 tablet PRN Reason: Spasms Lidocaine Patch 5% [Lidoderm Patch] 1 patch TOP DAILY PRN #10 patch PRN Reason: pain Metformin HCl 1,000 mg PO BID #60 tablet Comments: There were diagnostic findings on tonight's test, including the blood test, urinalysis, and the CT scan of your abdomen and pelvis. The cause of your symptoms is not apparent at this time. Follow-up with your primary care provider, next available appointment; further testing might be indicated, particularly if your symptoms persist or recur. The CT scan does show a moderate amount of stool in your colon; constipation is a potential explanation for your discomfort. I recommend that you try a laxative such as milk of magnesia or MiraLAX to see if this results in improvement or resolution of your symptoms. The CT scan also had an incidental finding of a pulmonary (lung) nodule. This is not causing or contributing to your symptoms. You should follow-up with your primary care provider, not only for reevaluation the symptoms you are having, but also mention to them the CT finding of the pulmonary nodule. As we discussed, your blood sugar was quite high tonight (350). This is, again, an incidental finding (this is not causing or contributing to your symptoms). However, it is very important that you take your prescription medications as prescribed. You have indicated that you still have some metformin at home; as soon as you get home, you should take a dose of the metformin per the label instructions, and then resume taking the metformin as prescribed. I have also submitted a prescription for a 1-month supply of 1000 mg metformin (to be taken twice per day) to the [facility] pharmacy. I have electronically submitted prescriptions for the lidocaine patches and Flexeril (muscle relaxant) to the [facility] pharmacy in [place]. Discharge Date/Time: 03/12/23 02:24
[2023-03-12 00:29] LABS: BASOPHILS # (AUTO) 0.1 10^3/uL (0.0-0.1); BASOPHILS % (AUTO) 0.6 %; EOSINOPHILS # (AUTO) 0.4 10^3/uL (0.0-0.7); EOSINOPHILS % (AUTO) 3.7 %; HCT - HEMATOCRIT 41.7 % (37.0-47.0); HGB - HEMOGLOBIN 13.9 g/dL (12.0-16.0); LYMPHOCYTES # (AUTO) 2.8 10^3/uL (1.5-3.5); LYMPHOCYTES % (AUTO) 26.7 %; MEAN CORPUSCULAR HGB CONC 33.3 g/dL (32.0-36.0); MEAN CORPUSCULAR VOLUME 83.9 fL (81.0-99.0); MEAN PLATELET VOLUME 9.8 fL (7.9-10.8); MONOCYTES # (AUTO) 0.7 10^3/uL (0.0-1.0); MONOCYTES % (AUTO) 6.8 %; NEUTROPHILS # (AUTO) 6.5 10^3/uL (1.5-6.6); NEUTROPHILS % (AUTO) 61.8 %; PLT - PLATELET COUNT 377 10^3/uL (130-450); RED BLOOD COUNT 4.97 10^6/uL (4.20-5.40); RED CELL DISTRIBUTION WIDTH 13.4 % (12.0-15.0); WHITE BLOOD COUNT 10.4 x10^3/uL (4.8-10.8)
[2023-03-12 00:33] LABS: BILIRUBIN,URINE NEGATIVE (NEGATIVE); GLUCOSE, URINE (UA) >=1000 mg/dL (NEGATIVE); KETONES,URINE (UA) NEGATIVE (NEGATIVE); LEUKOCYTE ESTERASE, URINE NEGATIVE (NEGATIVE); NITRITE,URINE NEGATIVE (NEGATIVE); OCCULT BLOOD,URINE NEGATIVE (NEGATIVE); PROTEIN,URINE NEGATIVE (NEGATIVE); UROBILINOGEN,URINE 0.2 (NORMAL) E.U./dL (NORMAL)
[2023-03-12 00:37] LABS: CLARITY,URINE CLEAR (CLEAR)
[2023-03-12 00:49] LABS: ALBUMIN 4.6 g/dL (3.2-5.5); ALBUMIN/GLOBULIN RATIO 1.6 (1.0-2.2); BILIRUBIN,TOTAL 0.3 mg/dL (0.2-1.0); CALCIUM 9.4 mg/dL (8.5-10.3); CREATININE 0.7 mg/dL (0.6-1.3); TOTAL PROTEIN 7.5 g/dL (6.4-8.9)
--- NOTE | 2023-03-12 01:08 | CT Report ---
PROCEDURE: ABDOMEN/PELVIS WO INDICATIONS: right flank pain TECHNIQUE: A CT scan of the abdomen and pelvis was performed without the use of intravenous contrast. Images we re recorded and evaluated at appropriate window settings. Reformats: coronal and sagittal. For radiat ion dose reduction, the following was used: automated exposure control, adjustment of mA and/or kV ac cording to patient size. COMPARISON: None. FINDINGS: Image quality: Excellent. Lung bases and heart: 4 mm solid nodule in the left lower lobe. Liver: Hepatic steatosis. Gallbladder and biliary tree: Cholelithiasis without wall thickening. No biliary dilation. Spleen: No splenomegaly. Pancreas: No pancreatic ductal dilation. Adrenals: No adrenal nodule. Kidneys and ureters: No hydronephrosis. No renal cystic lesion which requires follow up. No solid mas s. Duplex right-sided renal collecting system, with atrophy of the superior moiety. Additionally, the re is a juxtacortical defect on the lower pole of the right kidney. Bowel and peritoneum: No bowel distension. No pathologic free fluid. Normal appendix. Moderate coloni c stool load, predominantly of the ascending colon. Lymph nodes: No central or retroperitoneal adenopathy. Vessels: No infrarenal aortic aneurysm. PELVIS Reproductive organs: Unremarkable. Bladder: No wall thickness, accounting for underdistention. Pelvic lymph nodes: No pelvic adenopathy by size criteria. Bones: No aggressive osseous abnormality. Other: No significant ventral or inguinal hernia. IMPRESSION: No hydronephrosis or obstructing renal stone. Normal appendix. Moderate colonic stool load, predominantly of the ascending colon. Duplex right-sided renal collecting system, with atrophy of the superior moiety. 5 mm solid nodule in the left lower lobe. Consider 12 month follow-up if this patient is at high risk for developing lung cancer, per Fleischner Society guidelines. Colonic diverticulosis without evidence of diverticulitis. Reviewed by: Grzegorz Montenegro on 03/12/2023 1:07 AM [facility] Approved by: Grzegorz Montenegro on 03/12/2023 1:07 AM [facility] Station ID: [id number]
[2023-03-12] MEDS ORDERED: LIDOCAINE PATCH 5% TOP STA (01:55)
[2023-03-12] MEDS ORDERED: KETOROLAC 30 MG/ML VIAL IVP STA (01:55)
[2023-03-12] MEDS ORDERED: CYCLOBENZAPRINE 10 MG Prepack 2 PO PRN (01:55)
[2023-03-12 02:05] VITALS: BP 134/75; O2SAT 100
== END 2023-03-12 02:24 | disposition home or self-care (01) ==
LOC: ED 23:16
DX: M54.50 Low back pain, unspecified (principal); E11.65 Type 2 diabetes mellitus with hyperglycemia; Z79.84 Long term (current) use of oral hypoglycemic drugs
CPT/HCPCS: 36415; 74176; 80053; 81003; 83690; 85025; 96374; 99283; 99284; A9270; 81001; 87086

== ENCOUNTER 2023-03-20 22:28 | Emergency (ER) | payer MEDICAID ==
[2023-03-20 22:41] VITALS: BP 140/90; O2SAT 100
[2023-03-20] MEDS ORDERED: predniSONE 20 MG TABLET PO STA (22:53)
--- NOTE | 2023-03-20 22:55 | ED Physician Documentation ---
PD HPI BACK PAIN - Stated complaint Stated Complaint: BACK PX - Chief complaint Chief Complaint: Back Pain - History obtained from History obtained from: Patient - Additional information Additional information: Patient is a 42-year-old female presenting for evaluation of right lower back pain that has been present for 15 days. Patient states she took a nap and then woke up with the pain which has been present since.She states that the pain does get worse towards the end of the day. It feels better when she is standing up and worse when she is sitting. She was seen here 03/12/23 for the same s ymptoms with an unremarkable work-up including CT abdomen and pelvis and labs. She was given a prescription for Flexeril which she has been using only at night with some improvement. However tonight it was not helping her. She has occasionally tried some ibuprofen With her last dose being early this morning. She does not want to try narcotics. Denies fever, chest pain, shortness of air, abdominal symptoms, nausea or vomiting. Denies urinary incontinence, saddle anesthesia, radiation of pain to her legs. Does not take a blood thinner. No IV drug use or known cancers. Review of Systems Constitutional: denies: Fever Cardiac: denies: Chest pain / pressure Respiratory: denies: Dyspnea GI: denies: Abdominal Pain : denies: Dysuria Musculoskeletal: reports: Back pain Neurologic: denies: Headache PD PAST MEDICAL HISTORY - Past Medical History Cardiovascular: High cholesterol Respiratory: None Neuro: Migraines Endocrine/Autoimmune: Type 2 diabetes GI: None : None HEENT: None Psych: None Musculoskeletal: None Derm: None - Past Surgical History Past Surgical History: No - Present Medications Home Medications: Ambulatory Orders Medication Instructions Recorded Confirmed Metformin HCl 1,000 mg PO BID 09/22/12 08/23/22 Multivitamin [Multivitamins] 1 each PO DAILY 09/22/12 08/23/22 Butalb/Acetaminophen/Caffeine 1 each PO Q4H PRN #10 capsule 03/31/20 08/23/22 [Fioricet 50-300-40 mg Capsule] Butalb/Acetaminophen/Caffeine 1 cap PO Q6H PRN #10 cap 08/23/22 [Fioricet 50-300-40 mg Capsule] Cyclobenzaprine [Flexeril] 10 mg PO TID PRN #20 tablet 03/12/23 Lidocaine Patch 5% [Lidoderm Patch] 1 patch TOP DAILY PRN #10 patch 03/12/23 Metformin HCl 1,000 mg PO BID #60 tablet 03/12/23 predniSONE [Deltasone] 20 mg PO [id number] #21 tab 03/20/23 - Allergies Allergies/Adverse Reactions: Allergies Allergy/AdvReac Type Severity Reaction Status Date / Time Sulfa (Sulfonamide Allergy Hives Verified 03/20/23 22:31 Antibiotics) - Social History Does the pt smoke?: No Smoking Status: Never smoker Does the pt drink ETOH?: No Does the pt have substance abuse?: Yes - Immunizations Immunizations are current?: Yes - POLST Patient has POLST: No PD ED PE NORMAL - General General: Alert and oriented X 3, No acute distress, Well developed/nourished - HEENT HEENT: Atraumatic, Moist mucous membranes, Pharynx benign - Neck Neck: Supple, no meningeal sign - Cardiac Cardiac: RRR, No murmur, Strong equal pulses - Respiratory Respiratory: No respiratory distress, Clear bilaterally - Abdomen Abdomen: Normal bowel sounds, Soft, Non tender, Non distended - Back Back: No spinal TTP, Other (Right lower paralumbar pain) Results - Vitals Vitals: Vital Signs - 24 hr 03/20/23 22:31 Temperature 36.5 C Heart Rate 90 Respiratory 16 Rate Blood Pressure 140/90 H O2 Saturation 100 Oxygen O2 Source Room air PD Medical Decision Making - ED course ED course: Patient is a 42-year-old female presenting for evaluation of right lower back pain which has been present for 2 weeks. She was seen here 8 days ago with a negative work-up including CT abdomen and pelvis and labs. She has been using Flexeril at night with some improvement but it did not help her tonight. She is only occasionally using an anti-inflammatory. She has no red flag signs or symptoms in regards to her back pain. She does have an upcoming appointment with her PCP on Friday. I did offer IM Toradol which patient declined. She states that she does cannot do shots but she can do IV's. She states that she knows that it does not make sense but she adamantly refuses an IM injection. I do not think it would be necessary to place an IV just for the administration of Toradol. I did offer ibuprofen or acetaminophen here which she declines. She also does not want any narcotic pain medications. She is already on Flexeril and lidocaine patches. I did offer a trial of steroids which she is agreeable to. Patient counseled on need for close follow-up as well as concerning symptoms to return for. Departure - Departure Disposition: 01 Home, Self Care Clinical Impression: Low back pain Condition: Stable Instructions: ED Neck Back Pain General Prescriptions: predniSONE [Deltasone] 20 mg PO [id number] #21 tab Comments: Please continue with using the Flexeril as needed. I would also recommend adding an anti-inflammatory such as ibuprofen 600 mg every 8 hours for pain or acetaminophen 1000 mg every 8 hours as needed for pain. I sent a prescription for a steroid to [facility] pharmacy. Continue with ice or heat. I would recommend close follow-up with your primary care provider. Please return to the emergency department if you develop worsening symptoms such as loss of bowel or bladder control, weakness in your legs or any new concerns. Discharge Date/Time: 03/20/23 23:23
== END 2023-03-20 23:23 | disposition home or self-care (01) ==
LOC: ED 22:28
DX: M54.50 Low back pain, unspecified (principal)
CPT/HCPCS: 99282; 99283; J7512